=== PATIENT | female | born 1990 | race African-American/Black ===

== ENCOUNTER 2022-10-21 18:00 | Emergency (ER) | payer BC ==
[~2022-10-21] VITALS: Ht 162.6 cm; Wt 97.5 kg
[2022-10-21] MEDS ORDERED: AMOX-CLAV 875-1 EAC1 PO (23:26)
== END 2022-10-21 23:39 | disposition home or self-care (01) ==
LOC: ER 18:00
DX: K04.7 Periapical abscess without sinus (principal)